=== PATIENT | male | born 1995 | race Caucasian/White ===

== ENCOUNTER 2016-12-22 01:02 | Emergency (ER) | payer OTHER ==
--- NOTE | 2016-12-22 01:44 | ED NURSING NOTES ---
Clinical Report - Nurses [facility] [address] [place] [address] 12/22/2016 1:05 Patient: INEZ QUISPE TRIAGE Triage time 01:14. Acuity: LEVEL 4. Chief Complaint: Sore under right arm. 01:17. Alert. --01:17 Kelechi Durbin R.N. 01:14 12/22/16. BP: 146/73. HR: 114. RR: 16. O2 saturation: 100%. Temp: 98.3 F (oral). Pain level now: 03/28. --01:17 Kelechi Durbin R.N. Weight: 129.2 kg stated. Height/Length: 67 inches Per Patient. BMI: 44.7. Growth Chart Percentile: Weight: 99.8%. Height/Length: 17.3%. --01:16 Kelechi Durbin R.N. Medications None. --01:17 Kelechi Durbin R.N. Allergies No Known Drug Allergy. --01:17 Kelechi Durbin R.N. Medication/allergy information source: the patient. --01:17 Kelechi Durbin R.N. History Arrived by private vehicle. Historian: patient. Accompanied by spouse. Primary physician (None). Reported as located in the right axilla. Onset. (4 days ago). It is described as painful. Treatment NOC ANALYST: Took Tylenol. (Aleve, Neosporin). PAST MEDICAL HX: Immunizations: up-to-date. SOCIAL HX: Current some days light tobacco smoker- less than 1/2 a pack per day. No alcohol use or drug use. No infectious disease exposure. ABUSE ASSESSMENT: No report of abuse. FALL RISK ASSESSMENT: Fall risk assessment completed. No fall risk identified. NUTRITIONAL RISK ASSESSMENT: The nutritional risk assessment revealed no deficiencies. FUNCTIONAL ASSESSMENT: Functional assessment: no impairments noted. LEARNING NEEDS ASSESSMENT: The learning needs assessment revealed no barriers. SKIN INTEGRITY ASSESSMENT: Skin integrity risk assessment completed. No skin integrity risk identified. --01:17 Kelechi Durbin R.N. PROBLEMS: no known problems. ADDITIONAL SURGERIES: no known surgeries. Interventions ID band on patient. To treatment room. --01:17 Kelechi Durbin R.N. PHYSICAL ASSESSMENT 01:18. Ambulatory to room. Patient gowned. GENERAL / NEURO / PSYCH: Alert. Oriented X 4. HEENT: Mucous membranes are pink. RESPIRATORY: Respirations not labored. SKIN: Skin is intact, warm and dry. Single skin lesion with erythema in the right axilla, on the right arm. --01:18 Kelechi Durbin R.N. NURSING PROGRESS NOTES 01:18. Head of bed elevated. Two patient identifiers checked. Call light placed in reach. Bed placed in lowest position. Brakes of bed on. Patient ready for evaluation- chart flagged. --01:18 Kelechi Durbin R.N. 01:46 12/22/2016 Bactrim DS (Sulfamethoxazole-TMP DS) PO 1 tab given. Allergies verified and confirmed 5 rights. --01:51 Kelechi Durbin R.N. 01:46 12/22/2016 Hydrocodone-APAP (Hydrocodone-Acetaminophen) PO 5/325 mg Tablets 1 tab given. Allergies verified, confirmed 5 rights and sedative warning given to the patient. --01:51 Kelechi Durbin R.N. 01:48 12/22/2016 Toradol (Ketorolac Tromethamine) IM 60 mg given. Given in the right ventral gluteus. Allergies verified and confirmed 5 rights. --01:51 Kelechi Durbin R.N. 02:00. The patient is calm and resting quietly. RESPIRATORY: No respiratory distress. SKIN: Skin is warm and dry. Skin color within normal limits. --02:04 Kelechi Durbin R.N. 02:01 12/22/2016 Toradol IM Response: no adverse reaction. --02:04 Kelechi Durbin R.N. DISPOSITION / DISCHARGE Departure time: 02:03. Condition at departure: stable. No learning barriers present. Discharge instructions provided and reviewed with the patient. Reviewed medication(s) side effects, precautions, dosing and course information. Prescription(s) given to the patient. Patient verbalized understanding. Written instructions provided in [place]. The patient was discharged home and accompanied by spouse. He left the Emergency Department ambulatory and via private vehicle. Spouse driving. FALL RISK ASSESSMENT: Fall risk assessment completed. No fall risk identified. --02:03 Kelechi Durbin R.N. Locked/Released at 12/22/2016 2:06 by Kelechi Durbin R.N.
--- NOTE | 2016-12-22 01:44 | ED CLINICAL REPORT ---
Clinical Report - Physicians/Mid Levels [facility] [address] [place] [address] 12/22/2016 1:05 Patient: INEZ QUISPE Time Seen: 01:29. Arrived- By private vehicle. Historian- patient. HISTORY OF PRESENT ILLNESS Chief Complaint: SKIN RASH and TENDER AREA. This started several days ago and is still present. It is described as painful. It has been located on the right arm. No cause has been identified. Similar symptoms previously: None. Recent medical care: Not recently seen/assessed. REVIEW OF SYSTEMS No fever, chills, sore throat, cough or difficulty breathing. No hoarseness, lump in throat, enlarged lymph nodes, headache or eye irritation. No chest pain, abdominal pain, nausea, diarrhea or difficulty with urination. No joint pain or vomiting. All systems otherwise negative, except as recorded above. PAST HISTORY Problems: no known problems. Additional Surgeries: no known surgeries. Medications: None. Allergies: No Known Drug Allergy. SOCIAL HISTORY Smoker- current status unknown. No alcohol use or drug use. ADDITIONAL NOTES The nursing notes have been reviewed. PHYSICAL EXAM Vital Signs: 12/22/2016 01:14 BP: 146/73. HR: 114. RR: 16. O2 saturation: 100%. Temp: 98.3 F. Pain level now: 6/10. Have been reviewed. Appearance: Alert. Oriented X3. No acute distress. Eyes: Pupils equal, round and reactive to light. Conjunctivae and eyelids normal. ENT: Nose normal. Neck: Neck supple. CVS: Pulses normal. Strong peripheral pulses. Respiratory: No respiratory distress. Skin: Skin warm and dry. Normal skin color. Normal skin turgor. Medium area of cellulitis with tenderness, erythema and warmth (No induration, no fluctuance). Extremities: (Normal, other than R arm cellulitis, as above.). Neuro: (Grossly intact.). LABS, X-RAYS, AND EKG Pulse Oximetry: 12/22/2016 01:14 O2 saturation: 100%. (FIO2 - room air). Interpretation: normal. PROGRESS AND PROCEDURES Course of Care: Pt was given doses of Bactrim and Toradol. I d/w pt and his that there is no abscess cavity to drain at this time. The infected tissue is soft, and without a focal point of induration or fluctuance. Patient counseled in person regarding the patient's stable condition, diagnosis and need for follow-up. Concerns were addressed. Old medical records reviewed. Disposition: Discharged. Condition: stable. CLINICAL IMPRESSION Cellulitis of the right upper arm. INSTRUCTIONS Warnings: SEDATIVE MEDICATION: You were given sedative medication during your visit. Do not drive or operate dangerous machinery for 6 hours. GENERAL WARNINGS: Return or contact your physician immediately if your condition worsens or changes unexpectedly, if not improving as expected, or if other problems arise. Prescription Medications: Hydrocodone/APAP 5mg / 325mg: take 1-2 orally every 6 hours as needed for pain. Dispense fifteen (15). No refill. Bactrim DS 800 mg / 160 mg: take 1 tablet orally every 12 hours for 10 days. No refill. Substitution is permissible. Follow-up: Follow up with your doctor in five days if not better. Understanding of the discharge instructions verbalized by patient. (Electronically signed by Chandni Caruso MD 12/22/2016 1:58)
--- NOTE | 2016-12-22 01:44 | ED ORDER SUMMARY ---
..... Patient: INEZ QUISPE OrderSheet [facility] VisitID: [id number] [place] [address] 21y, M Registration Date/Time: 12/22/2016 ORDER SHEET Weight: 129.2 kg (stated) Allergies: No Known Drug Allergy GENERAL ORDERS: MEDICATION ORDERS: Bactrim DS PO (Tablet 800-160 mg) 1 tab (NOW) (01:39 12/22/2016 Noelle BUSTOS) (Ack 1:42 JQuivey R.N.) (1:50 JQuivey R.N.) Hydrocodone-APAP PO 5/325 mg (NOW, HIGH ALERT MEDICATION) (01:40 12/22/2016 Noelle BUSTOS) (Ack 1:42 JQuivey R.N.) (1:51 JQuivey R.N.) Toradol IM 60 mg (NOW) (01:41 12/22/2016 Noelle BUSTOS) (Ack 1:42 JQuivey R.N.) (1:51 JQuivey R.N.) IV FLUIDS: ORDER SHEET NOTES: [Electronically signed by Chandni Caruso MD (01:58 12/22/2016)] [Electronically signed by Kelechi Durbin R.N. (02:06 12/22/2016)] [Electronically locked/signed by Kelechi Durbin R.N. (02:06 12/22/2016)]
--- NOTE | 2016-12-22 01:44 | ED ORDER SUMMARY ---
..... Patient: INEZ QUISPE OrderSheet [facility] VisitID: [id number] [place] [address] 21y, M Registration Date/Time: 12/22/2016 ORDER SHEET Weight: 129.2 kg (stated) Allergies: No Known Drug Allergy GENERAL ORDERS: MEDICATION ORDERS: Bactrim DS PO (Tablet 800-160 mg) 1 tab (NOW) (01:39 12/22/2016 Noelle BUSTOS) (Ack 1:42 JQuivey R.N.) (1:50 JQuivey R.N.) Hydrocodone-APAP PO 5/325 mg (NOW, HIGH ALERT MEDICATION) (01:40 12/22/2016 Noelle BUSTOS) (Ack 1:42 JQuivey R.N.) (1:51 JQuivey R.N.) Toradol IM 60 mg (NOW) (01:41 12/22/2016 Noelle BUSTOS) (Ack 1:42 JQuivey R.N.) (1:51 JQuivey R.N.) IV FLUIDS: ORDER SHEET NOTES: [Electronically signed by Chandni Caruso MD (01:58 12/22/2016)] [Electronically signed by Kelechi Durbin R.N. (02:06 12/22/2016)] [Electronically locked/signed by Kelechi Durbin R.N. (02:06 12/22/2016)]
--- NOTE | 2016-12-22 01:44 | ED NURSING NOTES ---
Clinical Report - Nurses [facility] [address] [place] [address] 12/22/2016 1:05 Patient: INEZ QUISPE TRIAGE Triage time 01:14. Acuity: LEVEL 4. Chief Complaint: Sore under right arm. 01:17. Alert. --01:17 Kelechi Durbin R.N. 01:14 12/22/16. BP: 146/73. HR: 114. RR: 16. O2 saturation: 100%. Temp: 98.3 F (oral). Pain level now: 03/28. --01:17 Kelechi Durbin R.N. Weight: 129.2 kg stated. Height/Length: 67 inches Per Patient. BMI: 44.7. Growth Chart Percentile: Weight: 99.8%. Height/Length: 17.3%. --01:16 Kelechi Dubrin R.N. Medications None. --01:17 Kelechi Durbin R.N. Allergies No Known Drug Allergy. --01:17 Kelechi Durbin R.N. Medication/allergy information source: the patient. --01:17 Kelechi Durbin R.N. History Arrived by private vehicle. Historian: patient. Accompanied by spouse. Primary physician (None). Reported as located in the right axilla. Onset. (4 days ago). It is described as painful. Treatment RN L AND D: Took Tylenol. (Aleve, Neosporin). PAST MEDICAL HX: Immunizations: up-to-date. SOCIAL HX: Current some days light tobacco smoker- less than 1/2 a pack per day. No alcohol use or drug use. No infectious disease exposure. ABUSE ASSESSMENT: No report of abuse. FALL RISK ASSESSMENT: Fall risk assessment completed. No fall risk identified. NUTRITIONAL RISK ASSESSMENT: The nutritional risk assessment revealed no deficiencies. FUNCTIONAL ASSESSMENT: Functional assessment: no impairments noted. LEARNING NEEDS ASSESSMENT: The learning needs assessment revealed no barriers. SKIN INTEGRITY ASSESSMENT: Skin integrity risk assessment completed. No skin integrity risk identified. --01:17 Kelechi Durbin R.N. PROBLEMS: no known problems. ADDITIONAL SURGERIES: no known surgeries. Interventions ID band on patient. To treatment room. --01:17 Kelechi Durbin R.N. PHYSICAL ASSESSMENT 01:18. Ambulatory to room. Patient gowned. GENERAL / NEURO / PSYCH: Alert. Oriented X 4. HEENT: Mucous membranes are pink. RESPIRATORY: Respirations not labored. SKIN: Skin is intact, warm and dry. Single skin lesion with erythema in the right axilla, on the right arm. --01:18 eKlechi Durbin R.N. NURSING PROGRESS NOTES 01:18. Head of bed elevated. Two patient identifiers checked. Call light placed in reach. Bed placed in lowest position. Brakes of bed on. Patient ready for evaluation- chart flagged. --01:18 Kelechi Durbin R.N. 01:46 12/22/2016 Bactrim DS (Sulfamethoxazole-TMP DS) PO 1 tab given. Allergies verified and confirmed 5 rights. --01:51 Kelechi Durbin R.N. 01:46 12/22/2016 Hydrocodone-APAP (Hydrocodone-Acetaminophen) PO 5/325 mg Tablets 1 tab given. Allergies verified, confirmed 5 rights and sedative warning given to the patient. --01:51 Kelechi Durbin R.N. 01:48 12/22/2016 Toradol (Ketorolac Tromethamine) IM 60 mg given. Given in the right ventral gluteus. Allergies verified and confirmed 5 rights. --01:51 Kelechi Durbin R.N. 02:00. The patient is calm and resting quietly. RESPIRATORY: No respiratory distress. SKIN: Skin is warm and dry. Skin color within normal limits. --02:04 Kelechi Durbin R.N. 02:01 12/22/2016 Toradol IM Response: no adverse reaction. --02:04 Kelechi Durbin R.N. DISPOSITION / DISCHARGE Departure time: 02:03. Condition at departure: stable. No learning barriers present. Discharge instructions provided and reviewed with the patient. Reviewed medication(s) side effects, precautions, dosing and course information. Prescription(s) given to the patient. Patient verbalized understanding. Written instructions provided in [place]. The patient was discharged home and accompanied by spouse. He left the Emergency Department ambulatory and via private vehicle. Spouse driving. FALL RISK ASSESSMENT: Fall risk assessment completed. No fall risk identified. --02:03 Kelechi Durbin R.N. Locked/Released at 12/22/2016 2:06 by Kelechi Durbin R.N.
--- NOTE | 2016-12-22 02:06 | ED DISCHARGE INSTRUCTIONS ---
Patient: INEZ QUISPE General Instructions [facility] VisitID: [id number] [place] [address] 21y, M Registration Date/Time: 12/22/2016 Cellulitis of the right upper arm. INSTRUCTIONS Warnings: SEDATIVE MEDICATION: You were given sedative medication during your visit. Do not drive or operate dangerous machinery for 6 hours. GENERAL WARNINGS: Return or contact your physician immediately if your condition worsens or changes unexpectedly, if not improving as expected, or if other problems arise. Prescription Medications: Hydrocodone/APAP 5mg / 325mg: take 1-2 orally every 6 hours as needed for pain. Dispense fifteen (15). No refill. Bactrim DS 800 mg / 160 mg: take 1 tablet orally every 12 hours for 10 days. No refill. Substitution is permissible. Follow-up: Follow up with your doctor in five days if not better. Understanding of the discharge instructions verbalized by patient. ADDITIONAL INFORMATION Cellulitis You have an infection of the skin known as cellulitis. This usually starts with a scrape, cut, insect bite, blister or other opening in the skin which becomes infected. This is a serious condition. It must be watched closely to be sure the infection is not spreading. With antibiotic treatment, the size of the red area will gradually shrink in size until the skin returns to normal. This will take 7-10 days. The red area should never increase in size once the antibiotic medicine has been started. Occasionally, an infection will be resistant to one antibiotic and another one will have to be used. Home Care: 1) Limit the use of the affected part, since excess movement can cause the infection to spread. 2) If the infection is on your leg, walk as little as possible during the first few days of the treatment. Keep your leg elevated while sitting. This will reduce swelling. 3) Take all of the antibiotic medicine exactly as directed until it is gone. Be careful not to miss any doses, especially during the first seven days. Follow Up with your doctor or this facility as directed. Check the infected area daily for the warning signs listed below. Get Prompt Medical Attention if any of the following occur: -- Spreading area of redness -- Increasing swelling or pain -- Appearance of pus or drainage -- Fever over 100.4 F (38.0 C) oral, or over 101.4 F (38.6 C) rectal, after two days on antibiotics You have been given the following additional information: Cellulitis (Electronically signed by Chandni Caruso MD 12/22/2016 1:58)
--- NOTE | 2016-12-22 02:06 | ED MAR SUMMARY ---
..... Medication Administration Record [facility] [address] [place] [address] Patient: INEZ QUISPE Visit ID: [id number] 21y, M Weight: 129.2 kg Height/Length: 67 in BMI: 44.7 ALLERGIES: No Known Drug Allergy Given 01:46 12/22/2016 Kelechi Durbin, R.N. Medication Administered: BACTRIM DS [PO] (SULFAMETHOXAZOLE-TMP DS), Dose: 1 tab PO. Medication Ordered: Bactrim DS PO (Tablet 800-160 mg) 1 tab (NOW). Given 01:46 12/22/2016 Kelechi Durbin, R.N. Medication Administered: HYDROCODONE-APAP [PO] (HYDROCODONE-ACETAMINOPHEN), Dose: 1 tab 5/325 mg Tablets PO. Medication Ordered: Hydrocodone-APAP PO 5/325 mg (NOW, HIGH ALERT MEDICATION). Given 01:48 12/22/2016 Kelechi Durbin, R.N. Medication Administered: TORADOL [IM] (KETOROLAC TROMETHAMINE), Dose: 60 mg IM. Medication Ordered: Toradol IM 60 mg (NOW).
--- NOTE | 2016-12-22 02:06 | ED MAR SUMMARY ---
..... Medication Administration Record [facility] [address] [place] [address] Patient: INEZ QUISPE Visit ID: [id number] 21y, M Weight: 129.2 kg Height/Length: 67 in BMI: 44.7 ALLERGIES: No Known Drug Allergy Given 01:46 12/22/2016 Kelechi Durbin, R.N. Medication Administered: BACTRIM DS [PO] (SULFAMETHOXAZOLE-TMP DS), Dose: 1 tab PO. Medication Ordered: Bactrim DS PO (Tablet 800-160 mg) 1 tab (NOW). Given 01:46 12/22/2016 Kelechi Durbin, R.N. Medication Administered: HYDROCODONE-APAP [PO] (HYDROCODONE-ACETAMINOPHEN), Dose: 1 tab 5/325 mg Tablets PO. Medication Ordered: Hydrocodone-APAP PO 5/325 mg (NOW, HIGH ALERT MEDICATION). Given 01:48 12/22/2016 Kelechi Durbin, R.N. Medication Administered: TORADOL [IM] (KETOROLAC TROMETHAMINE), Dose: 60 mg IM. Medication Ordered: Toradol IM 60 mg (NOW).
--- NOTE | 2016-12-22 02:07 | ED MED RECONCILIATION SUMMARY ---
Patient: INEZ QUISPE Medication Reconciliation Report [facility] VisitID: [id number] [place] [address] 21y, M Registration Date/Time: 12/22/2016 Weight: 129.2 kg Height/Length: 67 in. BMI: 44.7 ALLERGIES: No Known Drug Allergy The patient's Home Medications are listed below: NONE. The source(s) of the original Home Medication information: patient The following Medications were given to the patient in the Emergency Department: Bactrim DS [PO] PO 1 tab, administered: 12/22/2016 1:46:00 AM Hydrocodone-APAP [PO] PO 1 tab, administered: 12/22/2016 1:46:00 AM Toradol [IM] IM 60 mg, administered: 12/22/2016 1:48:00 AM The following Medications were prescribed to the patient: Hydrocodone/APAP 5mg / 325mg: take 1-2 orally every 6 hours as needed for pain. Dispense fifteen (15). No refill. -- Chandni Caruso MD Bactrim DS 800 mg / 160 mg: take 1 tablet orally every 12 hours for 10 days. No refill. Substitution is permissible. -- Chandni Caruso MD
--- NOTE | 2016-12-22 02:07 | ED MED RECONCILIATION SUMMARY ---
Patient: INEZ QUISPE Medication Reconciliation Report [facility] VisitID: [id number] [place] [address] 21y, M Registration Date/Time: 12/22/2016 Weight: 129.2 kg Height/Length: 67 in. BMI: 44.7 ALLERGIES: No Known Drug Allergy The patient's Home Medications are listed below: NONE. The source(s) of the original Home Medication information: patient The following Medications were given to the patient in the Emergency Department: Bactrim DS [PO] PO 1 tab, administered: 12/22/2016 1:46:00 AM Hydrocodone-APAP [PO] PO 1 tab, administered: 12/22/2016 1:46:00 AM Toradol [IM] IM 60 mg, administered: 12/22/2016 1:48:00 AM The following Medications were prescribed to the patient: Hydrocodone/APAP 5mg / 325mg: take 1-2 orally every 6 hours as needed for pain. Dispense fifteen (15). No refill. -- Chandni Caruso MD Bactrim DS 800 mg / 160 mg: take 1 tablet orally every 12 hours for 10 days. No refill. Substitution is permissible. -- Chandni Caruso MD
== END 2016-12-22 02:03 | disposition home or self-care (01) ==
LOC: ED SRH 01:02
DX: L03.113 Cellulitis of right upper limb (principal)

== ENCOUNTER 2016-12-25 02:23 | Inpatient (IN) | payer OTHER ==
[~2016-12-25] VITALS: Ht 172.7 cm; Wt 110.0 kg
--- NOTE | 2016-12-25 04:05 | ED NURSING NOTES ---
Clinical Report - Nurses [facility] [address] [place] [address] 12/25/2016 2:24 Patient: INEZ QUISPE TRIAGE Triage time 02:36. Acuity: LEVEL 4. Chief Complaint: SKIN RASH. Alert. --02:42 Sarah Baumann R.N. 02:36 12/25/16. BP: 124/78. HR: 124. RR: 16. O2 saturation: 98%. Temp: 103 F (oral). Hawthorne-Linn pain scale: 6/10. --02:42 Sarah Baumann R.N. Weight: 108.8 kg stated. Height/Length: 68 inches Per Patient. BMI: 36.5. Growth Chart Percentile: Weight: 98.6%. Height/Length: 28.1%. --02:39 Sarah Baumann R.N. Allergies No Known Drug Allergy. --04:55 Arik Colon R.N. History Arrived by private vehicle. Historian: patient. Primary physician ([facility]). Reported as located in the right axilla. Onset. (about 1 1/2 week ago (was seen here 2 days ago, started on Abx) not getting better.). Treatment EDUCATION INTERN: Took ibuprofen. (last dose one hr EDUCATION INTERN, Tylenol last dose 2hrs EDUCATION INTERN). PAST MEDICAL HX: Immunizations: up-to-date. SOCIAL HX: Light tobacco smoker. No alcohol use or drug use. NUTRITIONAL RISK ASSESSMENT: The nutritional risk assessment revealed no deficiencies. FUNCTIONAL ASSESSMENT: Functional assessment: no impairments noted. --02:42 Sarah Baumann R.N. Interventions ID band on patient. To treatment room. --02:42 Sarah Baumann R.N. PHYSICAL ASSESSMENT Ambulatory to room. Patient gowned. GENERAL / NEURO / PSYCH: Alert. The patient does not appear to be in acute distress. Oriented X 4. HEENT: Mucous membranes are pink. RESPIRATORY: Respirations not labored. CVS: Capillary refill less than 2 seconds. SKIN: Skin is warm and dry. Skin lesion present in the right axilla. --02:42 Sarah Baumann R.N. ( pt states being seen in this ER 3 days ago for same complaint. Patient has a large red swollen abscess under right arm in the axilla area. Patient complains of limited ROM due to pain.). --03:43 Arik Colon R.N. GENERAL / NEURO / PSYCH: Alert. Oriented X 4. HEENT: Mucous membranes are pink. RESPIRATORY: Respirations not labored. CVS: Cardiac rhythm: sinus tachycardia. Capillary refill less than 2 seconds. SKIN: Skin is warm and dry. Swelling present in the right axilla. --03:44 Arik Colon R.N. NURSING PROGRESS NOTES Head of bed elevated. Two patient identifiers checked. Call light placed in reach. Side rails up x 2. Bed placed in lowest position. Brakes of bed on. --02:42 Sarah Baumann R.N. 03:10 12/25/2016 Site #1 started via IV in the left antecubital space with an 20g angiocath; one attempt. Blood drawn: rainbow set and cultures x1. Labeled in the presence of the patient and sent to the lab. Saline lock flushed. --03:36 Arik Colon R.N. <<STRICKEN ENTRY-- 03:20 12/25/2016 Dilaudid (HYDROmorphone HCl PF) IVP 0.5 mg given over 2 minute(s) via site #1. --03:36 Arik Colon R.N. --END STRIKE>> Change to Details. --03:37 Arik Colon R.N. 03:20 12/25/2016 Dilaudid (HYDROmorphone HCl PF) IVP 0.5 mg given over 2 minute(s) via site #1. Allergies verified, confirmed 5 rights and sedative warning given to the patient and patient's family. IV patency established. IV site checked: no pain, redness, or swelling. IV flushed thoroughly pre- and post-medication administration. IVP given by RN. --03:37 Arik Colon R.N. 03:22 12/25/2016 Zofran (Ondansetron HCl) IVP 4 mg given over 1 minute(s) via site #1. Allergies verified and confirmed 5 rights. IV patency established. IV site checked: no pain, redness, or swelling. IV flushed thoroughly pre- and post-medication administration. IVP given by RN. --03:37 Arik Colon R.N. 03:25 12/25/2016 Started bag #1 500 mL IV Fluids IV NS (Saline); at 999 mL/hr over 30 minute(s) via site #1 --03:38 Arik Colon R.N. 03:28 12/25/2016 Dilaudid (HYDROmorphone HCl PF) IVP 0.5 mg given over 2 minute(s) via site #1. Allergies verified, confirmed 5 rights and sedative warning given to the patient and patient's family. IV patency established. IV site checked: no pain, redness, or swelling. IV flushed thoroughly pre- and post-medication administration. IVP given by RN. --03:38 Arik Colon R.N. I & D: Incision and Drainage of abscess performed by ED physician. Assisted by one tech. Preparation: Incision and Drainage tray set up with lidocaine. Procedure: skin cleansed with Betadine; a large amount of pus was drained. Sample obtained for cultures. A dressing was applied. Post-procedure: he was stable, no complications and bleeding controlled. Total time of assist / procedure: 15 minutes. ( Dr. Mcgrath at bedside performing I&D.). --03:42 Arik Colon R.N. 04:15 12/25/2016 Started 2 gm of Vancomycin IVPB in bag #1 500 mL; at 150 mL/hr via site #1 via IV pump. Allergies verified and confirmed 5 rights. IV patency established. IV site checked: no pain, redness, or swelling. IV flushed thoroughly pre- and post-medication administration. --04:15 Arik Colon R.N. Patient gowned. The patient is calm and resting quietly. Overall patient status is improved- he states feels better. Two patient identifiers checked. Call light placed in reach. Side rails up x 1. Bed placed in lowest position. Brakes of bed on. ( supervisor shuttle preparation with patient, performing hospital admission procedures.). --04:26 Arik Colon R.N. 04:24 12/25/16. BP: 124/67. HR: 130 (regular). RR: 22 (regular). O2 saturation: 95% on room air. Pain level now: 0/10. --04:26 Arik Colon R.N. Care transferred and report given (to Niels Lemus RN). --04:37 Arik Colon R.N. DISPOSITION / DISCHARGE Report was given to a nurse via a phone call. Report included patient's care, treatment, medications, reviewed medication reconcilliation, and condition (including any recent changes or anticipated changes). All questions were answered. Report was acknowledged. --04:38 Arik Colon R.N. 04:39 12/25/16. BP: 141/72. HR: 129. RR: 18. O2 saturation: 94%. Pain level now: 0/10. --04:40 Arik Colon R.N. 04:42 12/25/2016 IV Fluids IV NS Discontinued: bag #1 completed. Total amount infused: 1000 mL. IV patency established. IV site checked: no pain, redness, or swelling. IV flushed thoroughly. --04:42 Arik Colon R.N. 04:43 12/25/2016 Vancomycin IVPB Continued: at the rate of 150 mL/hr. 470 mL remaining bag #1. IV patency established. IV site checked: no pain, redness, or swelling. IV flushed thoroughly. --04:43 Arik Colon R.N. 04:44 12/25/2016 Site #[address] upon admission; patent, no pain and no signs of infection or infiltration. Good blood return present. Flushed; flushes easily. --04:44 Arik Colon R.N. Transported via stretcher by transport team with IV. Patient's personal items include: shirt, pants, socks and shoes, clothing and ipad (without smelter charger.); items were transported with the patient. --04:47 Arik Colon R.N. Departure time: 0453. --04:54 Arik Colon R.N. Locked/Released at 12/25/2016 4:56 by Arik Colon R.N.
--- NOTE | 2016-12-25 04:05 | ED ORDER SUMMARY ---
..... Patient: INEZ QUISPE OrderSheet [facility] VisitID: [id number] [place] [address] 21y, M Registration Date/Time: 12/25/2016 ORDER SHEET Weight: 108.8 kg (stated) Allergies: No Known Drug Allergy GENERAL ORDERS: Blood Culture (Yes) (unsure) Urgent (02:47 12/25/2016 RCollier R.N. verbal order read back to Vineet BUSTOS) (Ack 2:48 CHategekimana) (3:33 DDavis R.N.) CBC w Diff Urgent (02:47 12/25/2016 RCollier R.N. verbal order read back to Vineet BUSTOS) (Ack 2:48 CHategekimana) (3:33 DDavis R.N.) CMP Urgent (02:47 12/25/2016 RCollier R.N. verbal order read back to Vineet BUSTOS) (Ack 2:48 CHategekimana) (3:33 DDavis R.N.) Lactic Acid for Sepsis Protocol Urgent (02:47 12/25/2016 RCollier R.N. verbal order read back to Vineet BUSTOS) (Ack 2:48 CHategekimana) (3:33 DDavis R.N.) Culture, Wound Deep (Arm) (R axilla) Urgent (03:45 12/25/2016 Vineet BUSTOS) (Ack 3:49 DDavis R.N.) (3:49 DDavis R.N.) (Ack 3:50 CHategekimana) MEDICATION ORDERS: IV FLUIDS: IV Saline Lock (02:47 12/25/2016 RCollier R.N. verbal order read back to Vineet BUSTOS) (Ack 2:47 RCollier R.N.) (3:39 DDavis R.N.) Dilaudid IV 0.5 mg (HIGH ALERT MEDICATION, NOW) (03:05 12/25/2016 Vineet BUSTOS) (Ack 3:17 RCollier R.N.) (3:36 DDavis R.N.) Zofran IV 4 mg (NOW) (03:05 12/25/2016 Vineet BUSTOS) (Ack 3:17 RCollier R.N.) (3:37 DDavis R.N.) IV NS : initial bolus 500 mL (1000 mL/hr), then 125 mL/hr for 4h (NOW); Urgent (03:05 12/25/2016 Vineet BUSTOS) (Ack 3:17 RCollier R.N.) (3:38 DDavis R.N.) Dilaudid IV 0.5 mg (NOW) (03:34 12/25/2016 DDavis R.N. verbal order read back to Vineet BUSTOS) (3:38 DDavis R.N.) Vancomycin IV 2 gm/500 mL (NOW) (03:57 12/25/2016 Vineet BUSTOS) (Ack 3:58 RCollier R.N.) (4:15 DDavis R.N.) ORDER SHEET NOTES: [Electronically signed by Arik Colon R.N. (04:56 12/25/2016)] [Electronically signed by Rod Mcgrath MD (03:11 12/26/2016)] [Electronically locked/signed by Arik Colon R.N. (04:56 12/25/2016)]
--- NOTE | 2016-12-25 04:05 | ED ORDER SUMMARY ---
..... Patient: INEZ QUISPE OrderSheet [facility] VisitID: [id number] [place] [address] 21y, M Registration Date/Time: 12/25/2016 ORDER SHEET Weight: 108.8 kg (stated) Allergies: No Known Drug Allergy GENERAL ORDERS: Blood Culture (Yes) (unsure) Urgent (02:47 12/25/2016 RCollier R.N. verbal order read back to Vineet BUSTOS) (Ack 2:48 CHategekimana) (3:33 DDavis R.N.) CBC w Diff Urgent (02:47 12/25/2016 RCollier R.N. verbal order read back to Vineet BUSTOS) (Ack 2:48 CHategekimana) (3:33 DDavis R.N.) CMP Urgent (02:47 12/25/2016 RCollier R.N. verbal order read back to Vineet BUSTOS) (Ack 2:48 CHategekimana) (3:33 DDavis R.N.) Lactic Acid for Sepsis Protocol Urgent (02:47 12/25/2016 RCollier R.N. verbal order read back to Vineet BUSTOS) (Ack 2:48 CHategekimana) (3:33 DDavis R.N.) Culture, Wound Deep (Arm) (R axilla) Urgent (03:45 12/25/2016 Vineet BUSTOS) (Ack 3:49 DDavis R.N.) (3:49 DDavis R.N.) (Ack 3:50 CHategekimana) MEDICATION ORDERS: IV FLUIDS: IV Saline Lock (02:47 12/25/2016 RCollier R.N. verbal order read back to Vineet BUSTOS) (Ack 2:47 RCollier R.N.) (3:39 DDavis R.N.) Dilaudid IV 0.5 mg (HIGH ALERT MEDICATION, NOW) (03:05 12/25/2016 Vineet BUSTOS) (Ack 3:17 RCollier R.N.) (3:36 DDavis R.N.) Zofran IV 4 mg (NOW) (03:05 12/25/2016 Vineet BUSTOS) (Ack 3:17 RCollier R.N.) (3:37 DDavis R.N.) IV NS : initial bolus 500 mL (1000 mL/hr), then 125 mL/hr for 4h (NOW); Urgent (03:05 12/25/2016 Vineet BUSTOS) (Ack 3:17 RCollier R.N.) (3:38 DDavis R.N.) Dilaudid IV 0.5 mg (NOW) (03:34 12/25/2016 DDavis R.N. verbal order read back to Vineet BUSTOS) (3:38 DDavis R.N.) Vancomycin IV 2 gm/500 mL (NOW) (03:57 12/25/2016 Vineet BUSTOS) (Ack 3:58 RCollier R.N.) (4:15 DDavis R.N.) ORDER SHEET NOTES: [Electronically signed by Arik Colon R.N. (04:56 12/25/2016)] [Electronically signed by Rod Mcgrath MD (03:11 12/26/2016)] [Electronically locked/signed by Arik Colon R.N. (04:56 12/25/2016)]
--- NOTE | 2016-12-25 04:05 | ED CLINICAL REPORT ---
Clinical Report - Physicians/Mid Levels [facility] [address] [place] [address] 12/25/2016 2:24 Patient: INEZ QUISPE Time Seen: 02:49. Arrived- By private vehicle. Historian- patient. HISTORY OF PRESENT ILLNESS Chief Complaint: TENDER AREA. This started about one and a half weeks ago and is still present and now worse. It was gradual in onset and has been constant. It is described as painful. It has been located in the right axilla. Similar symptoms previously: Recent medical care: The patient was seen recently at this facility. Seen for similar symptoms. Evaluation/treatment: antibiotic prescribed and see medication list. Diagnosis: cellulitis. REVIEW OF SYSTEMS The patient has had fever and chills and experienced sweats. No calf pain, chest pain, cough, difficulty breathing or pedal edema. No palpitations, abdominal pain, constipation, diarrhea or nausea. No vomiting or urinary problems. All systems otherwise negative, except as recorded above. PAST HISTORY Problems: Cellulitis. SOCIAL HISTORY Light tobacco smoker. No alcohol use or drug use. FAMILY HISTORY Denies family medical history. ADDITIONAL NOTES The nursing notes have been reviewed. PHYSICAL EXAM Vital Signs: 12/25/2016 02:36 BP: 124/78. HR: 124. RR: 16. O2 saturation: 98%. Temp: 103 F. Hawthorne-Linn pain scale: 6/10. Have been reviewed. Appearance: Alert. Eyes: Pupils equal, round and reactive to light. ENT: Pharynx normal. Neck: Neck supple. CVS: Normal heart rate and rhythm. Heart sounds normal. Respiratory: No respiratory distress. Breath sounds normal. Abdomen: Nontender. No organomegaly. Skin: Skin warm and dry. Medium abscess with fluctuance and cellulitis to right axilla. Extremities: No calf tenderness. LABS, X-RAYS, AND EKG Laboratory Tests: CBC w Diff: (LIZZY: 12/25/2016 03:05) ( MsgRcvd 12/25/2016 03:28) Final results Test Result Flag Units (Reference) WHITE BLOOD COUNT 17.0 H K/uL (4.5-11.5) RED BLOOD COUNT 5.02 M/uL (4.50-5.90) HEMOGLOBIN 14.3 gm/dL (13.5-17.5) HEMATOCRIT 42.9 % (41.0-53.0) MEAN CELL VOLUME 86 fL (80-100) MEAN CORPUSCULAR HGB 29 pg (26-34) MEAN CORPUSCULAR HGB CONC 33 g/dL (31-37) RED CELL DISTRIBUTION WIDTH 12.8 % (11.6-14.8) PLATELET COUNT 283 K/uL (150-400) NEUTROPHIL % 69.0 % (50-75) LYMPH % 21.3 L % (25-40) MONO % 7.5 % (3-14) EOSINOPHIL % 1.9 % (0-4) BASOPHIL % 0.3 % (0-2) CMP: (LIZZY: 12/25/2016 03:05) ( MsgRcvd 12/25/2016 03:50) Final results Test Result Flag Units (Reference) GLUCOSE 105 mg/dL (70-110) BUN 13 mg/dL (7-18) CREATININE 1.2 mg/dL (0.6-1.3) Estimated GFR >60 mL/min Estimated GFR- >60 mL/min Note: Persistent reduction over 3 months in eGFR<60 mL/min/1.73 m2 defines CKD. Patients with eGFR values>=60 mL/min/1.73 m2 may also have CKD if evidence ofpersistent proteinuria. Additional information may be foundat www.kidney.org. SODIUM 140 mmol/L (136-145) POTASSIUM 3.9 mmol/L (3.5-5.1) CHLORIDE 102 mmol/L (98-107) CARBON DIOXIDE 28 mmol/L (21-32) CALCIUM 8.9 mg/dL (8.5-10.1) TOTAL PROTEIN 8.4 H g/dL (6.4-8.2) ALBUMIN 3.9 g/dL (3.3-5.0) BILIRUBIN, TOTAL 0.5 mg/dL (0.0-1.0) ALKALINE PHOSPHATASE 111 U/L (46-116) AST (SGOT) 23 U/L (15-37) ALT (SGPT) 54 U/L (12-78) LACTIC ACID SEPSIS PROTOCOL 0.9 mmol/L (0.4-2.0) . PROGRESS AND PROCEDURES Incision & Drainage of Abscess: Time-out completed immediately before the procedure. The abscess is located in the right axilla. The risks of the procedure, benefits and alternatives were explained. Consent was obtained. IV established. Placed on pulse oximeter and front desk monitor. Parenteral Dilaudid administered. Local anesthesia provided using 2% lidocaine no epi. Skin cleansed with Betadine. The abscess was incised with a #11 surgical blade. A large amount of pus was drained. Cavity was irrigated with saline and packed with gauze. Sample obtained for cultures and gram stain. A dressing was applied. Course of Care: Patient is stable. Discussed case with hospitalist, (Fritz). Reviewed test results and need for additional work-up. Agreed upon treatment plan, need for patient follow-up and decision to place in observation. Health care provider will see patient in hospital. Patient/family counseled. Old medical records ordered. [facility] Disposition: Admitted. Observation. CLINICAL IMPRESSION Fever. Cellulitis. Single deep abscess with incision and drainage. Leukocytosis. (Electronically signed by Rod Mcgrath MD 12/26/2016 3:11)
--- NOTE | 2016-12-25 04:05 | ED CLINICAL REPORT ---
Clinical Report - Physicians/Mid Levels [facility] [address] [place] [address] 12/25/2016 2:24 Patient: INEZ QUISPE Time Seen: 02:49. Arrived- By private vehicle. Historian- patient. HISTORY OF PRESENT ILLNESS Chief Complaint: TENDER AREA. This started about one and a half weeks ago and is still present and now worse. It was gradual in onset and has been constant. It is described as painful. It has been located in the right axilla. Similar symptoms previously: Recent medical care: The patient was seen recently at this facility. Seen for similar symptoms. Evaluation/treatment: antibiotic prescribed and see medication list. Diagnosis: cellulitis. REVIEW OF SYSTEMS The patient has had fever and chills and experienced sweats. No calf pain, chest pain, cough, difficulty breathing or pedal edema. No palpitations, abdominal pain, constipation, diarrhea or nausea. No vomiting or urinary problems. All systems otherwise negative, except as recorded above. PAST HISTORY Problems: Cellulitis. SOCIAL HISTORY Light tobacco smoker. No alcohol use or drug use. FAMILY HISTORY Denies family medical history. ADDITIONAL NOTES The nursing notes have been reviewed. PHYSICAL EXAM Vital Signs: 12/25/2016 02:36 BP: 124/78. HR: 124. RR: 16. O2 saturation: 98%. Temp: 103 F. Hawthorne-Linn pain scale: 6/10. Have been reviewed. Appearance: Alert. Eyes: Pupils equal, round and reactive to light. ENT: Pharynx normal. Neck: Neck supple. CVS: Normal heart rate and rhythm. Heart sounds normal. Respiratory: No respiratory distress. Breath sounds normal. Abdomen: Nontender. No organomegaly. Skin: Skin warm and dry. Medium abscess with fluctuance and cellulitis to right axilla. Extremities: No calf tenderness. LABS, X-RAYS, AND EKG Laboratory Tests: CBC w Diff: (LIZZY: 12/25/2016 03:05) ( MsgRcvd 12/25/2016 03:28) Final results Test Result Flag Units (Reference) WHITE BLOOD COUNT 17.0 H K/uL (4.5-11.5) RED BLOOD COUNT 5.02 M/uL (4.50-5.90) HEMOGLOBIN 14.3 gm/dL (13.5-17.5) HEMATOCRIT 42.9 % (41.0-53.0) MEAN CELL VOLUME 86 fL (80-100) MEAN CORPUSCULAR HGB 29 pg (26-34) MEAN CORPUSCULAR HGB CONC 33 g/dL (31-37) RED CELL DISTRIBUTION WIDTH 12.8 % (11.6-14.8) PLATELET COUNT 283 K/uL (150-400) NEUTROPHIL % 69.0 % (50-75) LYMPH % 21.3 L % (25-40) MONO % 7.5 % (3-14) EOSINOPHIL % 1.9 % (0-4) BASOPHIL % 0.3 % (0-2) CMP: (LIZZY: 12/25/2016 03:05) ( MsgRcvd 12/25/2016 03:50) Final results Test Result Flag Units (Reference) GLUCOSE 105 mg/dL (70-110) BUN 13 mg/dL (7-18) CREATININE 1.2 mg/dL (0.6-1.3) Estimated GFR >60 mL/min Estimated GFR- >60 mL/min Note: Persistent reduction over 3 months in eGFR<60 mL/min/1.73 m2 defines CKD. Patients with eGFR values>=60 mL/min/1.73 m2 may also have CKD if evidence ofpersistent proteinuria. Additional information may be foundat www.kidney.org. SODIUM 140 mmol/L (136-145) POTASSIUM 3.9 mmol/L (3.5-5.1) CHLORIDE 102 mmol/L (98-107) CARBON DIOXIDE 28 mmol/L (21-32) CALCIUM 8.9 mg/dL (8.5-10.1) TOTAL PROTEIN 8.4 H g/dL (6.4-8.2) ALBUMIN 3.9 g/dL (3.3-5.0) BILIRUBIN, TOTAL 0.5 mg/dL (0.0-1.0) ALKALINE PHOSPHATASE 111 U/L (46-116) AST (SGOT) 23 U/L (15-37) ALT (SGPT) 54 U/L (12-78) LACTIC ACID SEPSIS PROTOCOL 0.9 mmol/L (0.4-2.0) . PROGRESS AND PROCEDURES Incision & Drainage of Abscess: Time-out completed immediately before the procedure. The abscess is located in the right axilla. The risks of the procedure, benefits and alternatives were explained. Consent was obtained. IV established. Placed on pulse oximeter and color television console monitor. Parenteral Dilaudid administered. Local anesthesia provided using 2% lidocaine no epi. Skin cleansed with Betadine. The abscess was incised with a #11 surgical blade. A large amount of pus was drained. Cavity was irrigated with saline and packed with gauze. Sample obtained for cultures and gram stain. A dressing was applied. Course of Care: Patient is stable. Discussed case with hospitalist, (Fritz). Reviewed test results and need for additional work-up. Agreed upon treatment plan, need for patient follow-up and decision to place in observation. Health care provider will see patient in hospital. Patient/family counseled. Old medical records ordered. [facility] Disposition: Admitted. Observation. CLINICAL IMPRESSION Fever. Cellulitis. Single deep abscess with incision and drainage. Leukocytosis. (Electronically signed by Rod Mcgrath MD 12/26/2016 3:11)
--- NOTE | 2016-12-25 04:05 | ED NURSING NOTES ---
Clinical Report - Nurses [facility] [address] [place] [address] 12/25/2016 2:24 Patient: INEZ UQISPE TRIAGE Triage time 02:36. Acuity: LEVEL 4. Chief Complaint: SKIN RASH. Alert. --02:42 Sarah Baumann R.N. 02:36 12/25/16. BP: 124/78. HR: 124. RR: 16. O2 saturation: 98%. Temp: 103 F (oral). Hawthorne-L[place] pain scale: 6/10. --02:42 Sarah Baumann R.N. Weight: 108.8 kg stated. Height/Length: 68 inches Per Patient. BMI: 36.5. Growth Chart Percentile: Weight: 98.6%. Height/Length: 28.1%. --02:39 Sarah Baumann R.N. Allergies No Known Drug Allergy. --04:55 Arik Colon R.N. History Arrived by private vehicle. Historian: patient. Primary physician ([facility]). Reported as located in the right axilla. Onset. (about 1 1/2 week ago (was seen here 2 days ago, started on Abx) not getting better.). Treatment INVESTMENT REPRESENTATIVE: Took ibuprofen. (last dose one hr INVESTMENT REPRESENTATIVE, Tylenol last dose 2hrs INVESTMENT REPRESENTATIVE). PAST MEDICAL HX: Immunizations: up-to-date. SOCIAL HX: Light tobacco smoker. No alcohol use or drug use. NUTRITIONAL RISK ASSESSMENT: The nutritional risk assessment revealed no deficiencies. FUNCTIONAL ASSESSMENT: Functional assessment: no impairments noted. --02:42 Sarah Baumann R.N. Interventions ID band on patient. To treatment room. --02:42 Sarah Baumann R.N. PHYSICAL ASSESSMENT Ambulatory to room. Patient gowned. GENERAL / NEURO / PSYCH: Alert. The patient does not appear to be in acute distress. Oriented X 4. HEENT: Mucous membranes are pink. RESPIRATORY: Respirations not labored. CVS: Capillary refill less than 2 seconds. SKIN: Skin is warm and dry. Skin lesion present in the right axilla. --02:42 Sarah Baumann R.N. ( pt states being seen in this ER 3 days ago for same complaint. Patient has a large red swollen abscess under right arm in the axilla area. Patient complains of limited ROM due to pain.). --03:43 Arik Colon R.N. GENERAL / NEURO / PSYCH: Alert. Oriented X 4. HEENT: Mucous membranes are pink. RESPIRATORY: Respirations not labored. CVS: Cardiac rhythm: sinus tachycardia. Capillary refill less than 2 seconds. SKIN: Skin is warm and dry. Swelling present in the right axilla. --03:44 Arik oClon R.N. NURSING PROGRESS NOTES Head of bed elevated. Two patient identifiers checked. Call light placed in reach. Side rails up x 2. Bed placed in lowest position. Brakes of bed on. --02:42 Sarah Baumann R.N. 03:10 12/25/2016 Site #1 started via IV in the left antecubital space with an 20g angiocath; one attempt. Blood drawn: rainbow set and cultures x1. Labeled in the presence of the patient and sent to the lab. Saline lock flushed. --03:36 Arik Colon R.N. <<STRICKEN ENTRY-- 03:20 12/25/2016 Dilaudid (HYDROmorphone HCl PF) IVP 0.5 mg given over 2 minute(s) via site #1. --03:36 Arik Colon R.N. --END STRIKE>> Change to Details. --03:37 Arik Colon R.N. 03:20 12/25/2016 Dilaudid (HYDROmorphone HCl PF) IVP 0.5 mg given over 2 minute(s) via site #1. Allergies verified, confirmed 5 rights and sedative warning given to the patient and patient's family. IV patency established. IV site checked: no pain, redness, or swelling. IV flushed thoroughly pre- and post-medication administration. IVP given by RN. --03:37 Arik Colon R.N. 03:22 12/25/2016 Zofran (Ondansetron HCl) IVP 4 mg given over 1 minute(s) via site #1. Allergies verified and confirmed 5 rights. IV patency established. IV site checked: no pain, redness, or swelling. IV flushed thoroughly pre- and post-medication administration. IVP given by RN. --03:37 Arik Colon R.N. 03:25 12/25/2016 Started bag #1 500 mL IV Fluids IV NS (Saline); at 999 mL/hr over 30 minute(s) via site #1 --03:38 Arik Colon R.N. 03:28 12/25/2016 Dilaudid (HYDROmorphone HCl PF) IVP 0.5 mg given over 2 minute(s) via site #1. Allergies verified, confirmed 5 rights and sedative warning given to the patient and patient's family. IV patency established. IV site checked: no pain, redness, or swelling. IV flushed thoroughly pre- and post-medication administration. IVP given by RN. --03:38 Arik Colon R.N. I & D: Incision and Drainage of abscess performed by ED physician. Assisted by one tech. Preparation: Incision and Drainage tray set up with lidocaine. Procedure: skin cleansed with Betadine; a large amount of pus was drained. Sample obtained for cultures. A dressing was applied. Post-procedure: he was stable, no complications and bleeding controlled. Total time of assist / procedure: 15 minutes. ( Dr. Mcgrath at bedside performing I&D.). --03:42 Arik Colon R.N. 04:15 12/25/2016 Started 2 gm of Vancomycin IVPB in bag #1 500 mL; at 150 mL/hr via site #1 via IV pump. Allergies verified and confirmed 5 rights. IV patency established. IV site checked: no pain, redness, or swelling. IV flushed thoroughly pre- and post-medication administration. --04:15 Arik Colon R.N. Patient gowned. The patient is calm and resting quietly. Overall patient status is improved- he states feels better. Two patient identifiers checked. Call light placed in reach. Side rails up x 1. Bed placed in lowest position. Brakes of bed on. ( materials supervisor with patient, performing hospital admission procedures.). --04:26 Arik Colon R.N. 04:24 12/25/16. BP: 124/67. HR: 130 (regular). RR: 22 (regular). O2 saturation: 95% on room air. Pain level now: 0/10. --04:26 Arik Colon R.N. Care transferred and report given (to Niels Lemus RN). --04:37 Arik Colon R.N. DISPOSITION / DISCHARGE Report was given to a nurse via a phone call. Report included patient's care, treatment, medications, reviewed medication reconcilliation, and condition (including any recent changes or anticipated changes). All questions were answered. Report was acknowledged. --04:38 Arik Colon R.N. 04:39 12/25/16. BP: 141/72. HR: 129. RR: 18. O2 saturation: 94%. Pain level now: 0/10. --04:40 Arik Colon R.N. 04:42 12/25/2016 IV Fluids IV NS Discontinued: bag #1 completed. Total amount infused: 1000 mL. IV patency established. IV site checked: no pain, redness, or swelling. IV flushed thoroughly. --04:42 Arik Colon R.N. 04:43 12/25/2016 Vancomycin IVPB Continued: at the rate of 150 mL/hr. 470 mL remaining bag #1. IV patency established. IV site checked: no pain, redness, or swelling. IV flushed thoroughly. --04:43 Arik Colon R.N. 04:44 12/25/2016 Site #[address] upon admission; patent, no pain and no signs of infection or infiltration. Good blood return present. Flushed; flushes easily. --04:44 Arik Colon R.N. Transported via stretcher by transport team with IV. Patient's personal items include: shirt, pants, socks and shoes, clothing and ipad (without electro mechanical assembler.); items were transported with the patient. --04:47 Arik Colon R.N. Departure time: 0453. --04:54 Arik Colon R.N. Locked/Released at 12/25/2016 4:56 by Arik Colon R.N.
[2016-12-25] MEDS ORDERED: BACTRIM DS1 TAB PO (04:44)
[2016-12-25 05:18] VITALS: BP 125/70
--- NOTE | 2016-12-25 06:00 | Progress Note ---
Subjective General Admission History and Physical Examination Patient Name: Rudolph Yanez Admission Date: December 25, 2016 Primary Care Provider: Dr. Morejon ([facility]) Attending Physician: Adriano Hu M.D. Admitting Physician: Adriano Hu M.D. CODE STATUS: FULL CODE Room: 207 SUBJECTIVE Historian: Patient Reliability: Good Chief Complaint: Abscess/cellulitis (R) arm History of Present Illness: The patient is a 21-year-old male with a significant past medical history of asthma, tobacco abuse-smoking but no other significant medical problems who presented to [facility] emergency room on the day of admission secondary to complaints of cellulitis right axillary region. [facility] ER evaluation was consistent with cellulitis/abscess right axillary region. The patient underwent I&D in the emergency department. Secondary to the above, the patient was admitted by Adriano Hu M.D. for further evaluation and treatment. The history of present was began approximately one week prior to admission when the patient developed a red swollen area in the right axillary region. This became worse with increasing pain prompting ER evaluation. The patient was seen at [facility] ER 4 days prior to admission and diagnosed with cellulitis right axillary region. He was treated with Bactrim DS one by mouth twice a day only to have symptoms worsen with increasing pain and swelling. Secondary to the above symptoms the patient presented again to [facility] emergency room on the day of admission. [facility] ER evaluation showed vital signs of blood pressure 124/78 mmHg, pulse 124, respirations 16, temperature 100.3 degrees O2 sat room air 98%. Physical exam was unremarkable other than abscess present right axillary region. The patient underwent I&D of this area with production of 30 cc of purulent material. Laboratory evaluation included CBC with differential with an H&H of 14.3/42.9, WBC 17.0. Chemistry profile was noncontributory. Secondary to the above, the patient was admitted with diagnosis of cellulitis/abscess right axillary region, positive SIRS criteria. PAST MEDICAL HISTORY Illnesses: 1. Tobacco abuse 2. Obesity 3. Asthma Allergies: 1. No Known Drug Allergies Medications: 1. Bactrim DS one by mouth twice a day 2. Vicodin 5/325 mg 1-2 by mouth every 6 hours when necessary pain Surgery: 1. None Injuries: 1. No significant Hospitalizations: 1. None FAMILY HISTORY Parents: 1. Father, Kj, living, 50, healthy, 2. Mother, Arcelia, living, 40, healthy Siblings: 1. Female, Panfilo, living, 11, healthy Children: 1. Female, Lucy, living, 5, healthy 2. Male, Cayetano, living, 6 months, healthy Other significant family history: None SOCIAL HISTORY 1. Marital Status: 2. Tenriism: None 3. Education: 12th grade 4. 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 Occupational health exposures: Loud noises, heavy lifting HABITS 1. Tobacco: 0.2 pack years, one pack per week 2. Drugs: None 3. Alcohol: None 4. Caffeine: None HEALTH SUPERVISION Item/Test 1. Vision screen: No recent 2. Cholesterol Profile: Unknown 3. PSA: NA 4. OLGA LIDIA: NA 5. FOBT: NA 6. Blood Glucose: 2017 7. Colonoscopy: NA 8. History and physical exam: 2017 9. Audiogram: NA 10. Mammogram: N/A 11. Pap/pelvic exam: NA IMMUNIZATIONS: 1. Pneumococcal: No previous 2. Influenza: 2015 3. Tetanus: Unknown ADVANCED DIRECTIVES: 1. Living well: No 2. POLST: No 3. CODE STATUS: FULL CODE 4. Durable Power Key Punch Teacher Health care: No 5. Donor card: No REVIEW OF SYSTEMS Remarkable for those things stated in the history of present illness and past medical history. Seventeen point review of system completed with the following notable findings: General: Fever, weakness Respiratory: Asthma Cardiovascular: Rapid heart rate Neurological: Headaches Endocrine: Excessive thirst Physical Exam Vital Signs / I&Os Vital Signs Date Time Temp Pulse Resp B/P Pulse O2 O2 Flow FiO2 Ox Delivery Rate 12/26 523 Room Air 12/25 517 99.5 117 14 125/70 96 Room Air General Appearance Alert, Oriented X3, Cooperative, No acute distress HEENT Normal exam, Atraumatic, PERRLA, EOMI, Moist mucous membranes Lungs Clear to auscultation, Normal air movement Neck Supple, No JVD Cardiovascular Regular rate and rhythm, Normal S1 and S2, No murmurs, gallops, rubs Abdomen Normal bowel sounds, Soft, No tenderness, No guarding Extremities No cyanosis, No clubbing, No edema Skin Right arm shows I&D with packing of abscess site medial aspect of upper arm /axilla with mild surrounding erythema. Neurological Cranial nerves intact, Strength 5/5 x4 ext's, No lateralizing signs Psych/Mental Status Mental status normal, Mood normal LAB Results Laboratory Tests 12/25 304 Chemistry Plasma Sodium (136 - 145 mmol/L) 140 Plasma Potassium (3.5 - 5.1 mmol/L) 3.9 Plasma Chloride (98 - 107 mmol/L) 102 CO2 (Enzymatic) (21 - 32 mmol/L) 28 BUN (7 - 18 mg/dL) 13 Creatinine (0.6 - 1.3 mg/dL) 1.2 Est GFR ( Amer) (mL/min) >60 Est GFR (Non-Af Amer) (mL/min) >60 Glucose (70 - 110 mg/dL) 105 Lactic Acid (0.4 - 2.0 mmol/L) 0.9 Plasma Calcium (8.5 - 10.1 mg/dL) 8.9 Total Bilirubin (0.0 - 1.0 mg/dL) 0.5 AST (15 - 37 U/L) 23 ALT (12 - 78 U/L) 54 Alkaline Phosphatase (46 - 116 U/L) 111 Total Protein (6.4 - 8.2 g/dL) 8.4 Albumin (3.3 - 5.0 g/dL) 3.9 Hematology WBC (4.5 - 11.5 K/uL) 17.0 RBC (4.50 - 5.90 M/uL) 5.02 Hgb (13.5 - 17.5 gm/dL) 14.3 Hct (41.0 - 53.0 %) 42.9 MCV (80 - 100 fL) 86 MCH (26 - 34 pg) 29 RDW (11.6 - 14.8 %) 12.8 Neut % (Auto) (50 - 75 %) 69.0 Lymph % (Auto) (25 - 40 %) 21.3 [place] % (Auto) (3 - 14 %) 7.5 Eos % (Auto) (0 - 4 %) 1.9 Baso % (Auto) (0 - 2 %) 0.3 Plt Count, EDTA (150 - 400 K/uL) 283 PUBS MCHC (31 - 37 g/dL) 33 Microbiology Date/Time Procedure - Status Source Growth 12/25 344 Blood Culture - RECD BLOOD 12/26 339 Deep Wound Culture - RES ARM 03/09 0340 Deep Wound Culture - RES ARM 12/25 0340 Gram Stain - RES ARM 12/25 0305 Blood Culture - RECD BLOOD Imaging None Assessment and Plan Problem List 1. Abscess Plan -Patient presents with findings of abscess right axillary region -Status post I&D -Gram stain, culture and sensitivity from the wound pending -Vancomycin per pharmacy protocol -Patient febrile with leukocytosis -Monitor 2. Cellulitis Plan -Patient with findings of cellulitis associated with abscess -See above 3. Tobacco abuse Status Chronic Onset Date Unknown Plan -Patient with history of nicotine dependence Smoking/tobacco abuse -Smoking cessation education -Encourage smoking abstinence post discharge -NicoDerm patch when necessary 4. Asthma Status Chronic Onset Date Unknown Plan -Patient with history of asthma -No symptoms at this time -Albuterol 2.5 mg via nebulizer every 6 hours when necessary shortness of breath /wheezing -Encourage smoking cessation 5. SIRS (systemic inflammatory response syndrome) Plan -Patient with positive SIRS screen -Findings of infection with right arm cellulitis/abscess -qSOFA is 0, low risk for sepsis -Monitor -closely -Lactic acid within normal limits -Antimicrobials as noted above 6. Obesity Status Chronic Onset Date Unknown Plan -Patient with BMI of 36.3 -Nutritional consultation -Encourage weight reduction program. The patient's hospitalization Current status: Fair, unstable Anticipated discharge date: Anticipated discharge in 2-3 days Anticipated discharge placement: Home Patient care time: Time spent in chart review, patient interview, physical exam, CPOE, and care documentation: 70 minutes Visit to patient today: 1 Complexity of care: High E&M Codes Admission: Inpt-High/08027
--- NOTE | 2016-12-25 06:00 | Progress Note ---
Subjective General Admission History and Physical Examination Patient Name: Rudolph Yanez Admission Date: December 25, 2016 Primary Care Provider: Dr. Morejon ([facility]) Attending Physician: Adriano Hu M.D. Admitting Physician: Adriano Hu M.D. CODE STATUS: FULL CODE Room: 207 SUBJECTIVE Historian: Patient Reliability: Good Chief Complaint: Abscess/cellulitis (R) arm History of Present Illness: The patient is a 21-year-old male with a significant past medical history of asthma, tobacco abuse-smoking but no other significant medical problems who presented to [facility] emergency room on the day of admission secondary to complaints of cellulitis right axillary region. [facility] ER evaluation was consistent with cellulitis/abscess right axillary region. The patient underwent I&D in the emergency department. Secondary to the above, the patient was admitted by Adriano Hu M.D. for further evaluation and treatment. The history of present was began approximately one week prior to admission when the patient developed a red swollen area in the right axillary region. This became worse with increasing pain prompting ER evaluation. The patient was seen at [facility] ER 4 days prior to admission and diagnosed with cellulitis right axillary region. He was treated with Bactrim DS one by mouth twice a day only to have symptoms worsen with increasing pain and swelling. Secondary to the above symptoms the patient presented again to [facility] emergency room on the day of admission. [facility] ER evaluation showed vital signs of blood pressure 124/78 mmHg, pulse 124, respirations 16, temperature 100.3 degrees O2 sat room air 98%. Physical exam was unremarkable other than abscess present right axillary region. The patient underwent I&D of this area with production of 30 cc of purulent material. Laboratory evaluation included CBC with differential with an H&H of 14.3/42.9, WBC 17.0. Chemistry profile was noncontributory. Secondary to the above, the patient was admitted with diagnosis of cellulitis/abscess right axillary region, positive SIRS criteria. PAST MEDICAL HISTORY Illnesses: 1. Tobacco abuse 2. Obesity 3. Asthma Allergies: 1. No Known Drug Allergies Medications: 1. Bactrim DS one by mouth twice a day 2. Vicodin 5/325 mg 1-2 by mouth every 6 hours when necessary pain Surgery: 1. None Injuries: 1. No significant Hospitalizations: 1. None FAMILY HISTORY Parents: 1. Father, Kj, living, 50, healthy, 2. Mother, Arcelia, living, 40, healthy Siblings: 1. Female, Panfilo, living, 11, healthy Children: 1. Female, Lucy, living, 5, healthy 2. Male, Cayetano, living, 6 months, healthy Other significant family history: None SOCIAL HISTORY 1. Marital Status: 2. Confucianist: None 3. Education: 12th grade 4. 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 Occupational health exposures: Loud noises, heavy lifting HABITS 1. Tobacco: 0.2 pack years, one pack per week 2. Drugs: None 3. Alcohol: None 4. Caffeine: None HEALTH SUPERVISION Item/Test 1. Vision screen: No recent 2. Cholesterol Profile: Unknown 3. PSA: NA 4. OLGA LIDIA: NA 5. FOBT: NA 6. Blood Glucose: 2017 7. Colonoscopy: NA 8. History and physical exam: 2017 9. Audiogram: NA 10. Mammogram: N/A 11. Pap/pelvic exam: NA IMMUNIZATIONS: 1. Pneumococcal: No previous 2. Influenza: 2015 3. Tetanus: Unknown ADVANCED DIRECTIVES: 1. Living well: No 2. POLST: No 3. CODE STATUS: FULL CODE 4. 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 Donor card: No REVIEW OF SYSTEMS Remarkable for those things stated in the history of present illness and past medical history. Seventeen point review of system completed with the following notable findings: General: Fever, weakness Respiratory: Asthma Cardiovascular: Rapid heart rate Neurological: Headaches Endocrine: Excessive thirst Physical Exam Vital Signs / I&Os Vital Signs Date Time Temp Pulse Resp B/P Pulse O2 O2 Flow FiO2 Ox Delivery Rate 12/26 523 Room Air 12/25 517 99.5 117 14 125/70 96 Room Air General Appearance Alert, Oriented X3, Cooperative, No acute distress HEENT Normal exam, Atraumatic, PERRLA, EOMI, Moist mucous membranes Lungs Clear to auscultation, Normal air movement Neck Supple, No JVD Cardiovascular Regular rate and rhythm, Normal S1 and S2, No murmurs, gallops, rubs Abdomen Normal bowel sounds, Soft, No tenderness, No guarding Extremities No cyanosis, No clubbing, No edema Skin Right arm shows I&D with packing of abscess site medial aspect of upper arm /axilla with mild surrounding erythema. Neurological Cranial nerves intact, Strength 5/5 x4 ext's, No lateralizing signs Psych/Mental Status Mental status normal, Mood normal LAB Results Laboratory Tests 12/25 304 Chemistry Plasma Sodium (136 - 145 mmol/L) 140 Plasma Potassium (3.5 - 5.1 mmol/L) 3.9 Plasma Chloride (98 - 107 mmol/L) 102 CO2 (Enzymatic) (21 - 32 mmol/L) 28 BUN (7 - 18 mg/dL) 13 Creatinine (0.6 - 1.3 mg/dL) 1.2 Est GFR ( Amer) (mL/min) >60 Est GFR (Non-Af Amer) (mL/min) >60 Glucose (70 - 110 mg/dL) 105 Lactic Acid (0.4 - 2.0 mmol/L) 0.9 Plasma Calcium (8.5 - 10.1 mg/dL) 8.9 Total Bilirubin (0.0 - 1.0 mg/dL) 0.5 AST (15 - 37 U/L) 23 ALT (12 - 78 U/L) 54 Alkaline Phosphatase (46 - 116 U/L) 111 Total Protein (6.4 - 8.2 g/dL) 8.4 Albumin (3.3 - 5.0 g/dL) 3.9 Hematology WBC (4.5 - 11.5 K/uL) 17.0 RBC (4.50 - 5.90 M/uL) 5.02 Hgb (13.5 - 17.5 gm/dL) 14.3 Hct (41.0 - 53.0 %) 42.9 MCV (80 - 100 fL) 86 MCH (26 - 34 pg) 29 RDW (11.6 - 14.8 %) 12.8 Neut % (Auto) (50 - 75 %) 69.0 Lymph % (Auto) (25 - 40 %) 21.3 Mccone % (Auto) (3 - 14 %) 7.5 Eos % (Auto) (0 - 4 %) 1.9 Baso % (Auto) (0 - 2 %) 0.3 Plt Count, EDTA (150 - 400 K/uL) 283 PUBS MCHC (31 - 37 g/dL) 33 Microbiology Date/Time Procedure - Status Source Growth 12/25 344 Blood Culture - RECD BLOOD 12/26 339 Deep Wound Culture - RES ARM 03/09 0340 Deep Wound Culture - RES ARM 12/25 0340 Gram Stain - RES ARM 12/25 0305 Blood Culture - RECD BLOOD Imaging None Assessment and Plan Problem List 1. Abscess Plan -Patient presents with findings of abscess right axillary region -Status post I&D -Gram stain, culture and sensitivity from the wound pending -Vancomycin per pharmacy protocol -Patient febrile with leukocytosis -Monitor 2. Cellulitis Plan -Patient with findings of cellulitis associated with abscess -See above 3. Tobacco abuse Status Chronic Onset Date Unknown Plan -Patient with history of nicotine dependence Smoking/tobacco abuse -Smoking cessation education -Encourage smoking abstinence post discharge -NicoDerm patch when necessary 4. Asthma Status Chronic Onset Date Unknown Plan -Patient with history of asthma -No symptoms at this time -Albuterol 2.5 mg via nebulizer every 6 hours when necessary shortness of breath /wheezing -Encourage smoking cessation 5. SIRS (systemic inflammatory response syndrome) Plan -Patient with positive SIRS screen -Findings of infection with right arm cellulitis/abscess -qSOFA is 0, low risk for sepsis -Monitor -closely -Lactic acid within normal limits -Antimicrobials as noted above 6. Obesity Status Chronic Onset Date Unknown Plan -Patient with BMI of 36.3 -Nutritional consultation -Encourage weight reduction program. The patient's hospitalization Current status: Fair, unstable Anticipated discharge date: Anticipated discharge in 2-3 days Anticipated discharge placement: Home Patient care time: Time spent in chart review, patient interview, physical exam, CPOE, and care documentation: 70 minutes Visit to patient today: 1 Complexity of care: High E&M Codes Admission: Inpt-High/07561
[2016-12-25 11:29] VITALS: BP 136/72
[2016-12-25 14:49] VITALS: BP 134/72
[2016-12-25 19:32] VITALS: BP 128/75
[2016-12-25 22:45] VITALS: BP 122/53
--- NOTE | 2016-12-26 03:11 | ED MED RECONCILIATION SUMMARY ---
Patient: INEZ QUISPE Medication Reconciliation Report [facility] VisitID: [id number] [address] [place] [address] 21y, M Registration Date/Time: 12/25/2016 Weight: 108.8 kg Height/Length: 68 in. BMI: 36.5 ALLERGIES: No Known Drug Allergy The patient's Home Medications are listed below: Not obtained. The source(s) of the original Home Medication information: Not obtained. The following Medications were given to the patient in the Emergency Department: Dilaudid [IVP] IVP 0.5 mg, administered: 12/25/2016 3:20:00 AM Zofran [IVP] IVP 4 mg, administered: 12/25/2016 3:22:00 AM Dilaudid [IVP] IVP 0.5 mg, administered: 12/25/2016 3:28:00 AM IV NS IV Fluids bolus 0, then 999 mL/hr, administered: 12/25/2016 3:25:00 AM Vancomycin [IVPB] IVPB bolus 0, then 2 gm 150 mL/hr, administered: 12/25/2016 4:15:00 AM The following Medications were prescribed to the patient: None.
--- NOTE | 2016-12-26 03:11 | ED MED RECONCILIATION SUMMARY ---
Patient: INEZ QUISPE Medication Reconciliation Report [facility] VisitID: [id number] [address] [place] [address] 21y, M Registration Date/Time: 12/25/2016 Weight: 108.8 kg Height/Length: 68 in. BMI: 36.5 ALLERGIES: No Known Drug Allergy The patient's Home Medications are listed below: Not obtained. The source(s) of the original Home Medication information: Not obtained. The following Medications were given to the patient in the Emergency Department: Dilaudid [IVP] IVP 0.5 mg, administered: 12/25/2016 3:20:00 AM Zofran [IVP] IVP 4 mg, administered: 12/25/2016 3:22:00 AM Dilaudid [IVP] IVP 0.5 mg, administered: 12/25/2016 3:28:00 AM IV NS IV Fluids bolus 0, then 999 mL/hr, administered: 12/25/2016 3:25:00 AM Vancomycin [IVPB] IVPB bolus 0, then 2 gm 150 mL/hr, administered: 12/25/2016 4:15:00 AM The following Medications were prescribed to the patient: None.
--- NOTE | 2016-12-26 03:11 | ED DISCHARGE INSTRUCTIONS ---
Patient: INEZ QUISPE General Instructions [facility] VisitID: [id number] [address] [place] [address] 21y, M Registration Date/Time: 12/25/2016 Fever. Cellulitis. Single deep abscess with incision and drainage. Leukocytosis. (Electronically signed by Rod Mcgrath MD 12/26/2016 3:11)
--- NOTE | 2016-12-26 03:11 | ED MAR SUMMARY ---
..... Medication Administration Record [facility] [address] [place] [address] Patient: INEZ QUISPE Visit ID: [id number] 21y, M Weight: 108.8 kg Height/Length: 68 in BMI: 36.5 ALLERGIES: No Known Drug Allergy Given 03:20 12/25/2016 Arik Colon R.N. Medication Administered: DILAUDID [IVP] (HYDROMORPHONE HCL PF), Dose: 0.5 mg IVP over 2 minute(s), Site: #1 left AC. Medication Ordered: Dilaudid IV 0.5 mg (HIGH ALERT MEDICATION, NOW). Given 03:22 12/25/2016 Arik Colon R.N. Medication Administered: ZOFRAN [IVP] (ONDANSETRON HCL), Dose: 4 mg IVP over 1 minute(s), Site: #1 left AC. Medication Ordered: Zofran IV 4 mg (NOW). Start 03:25 12/25/2016 Arik Colon R.N., Stop 04:42 12/25/2016 Arik Colon R.N. Medication Administered: IV NS (SALINE), Dose: IV Fluids over 30 minute(s), Rate: 999 mL/hr, Dispensed: 500 mL bag, Site: #1 left AC. Medication Ordered: IV NS : initial bolus 500 mL (1000 mL/hr), then 125 mL/hr for 4h (NOW); Urgent. Given 03:28 12/25/2016 Arik Colon R.N. Medication Administered: DILAUDID [IVP] (HYDROMORPHONE HCL PF), Dose: 0.5 mg IVP over 2 minute(s), Site: #1 left AC. Medication Ordered: Dilaudid IV 0.5 mg (NOW). Start 04:15 12/25/2016 Arik Colon R.N., Continued Upon Disposition 04:43 12/25/2016 Arik Colon R.N. Medication Administered: VANCOMYCIN [IVPB], Dose: 2 gm IVPB, Rate: 150 mL/hr, Dispensed: 500 mL bag, Site: #1 left AC. Medication Ordered: Vancomycin IV 2 gm/500 mL (NOW).
--- NOTE | 2016-12-26 03:11 | ED DISCHARGE INSTRUCTIONS ---
Patient: INEZ QUISPE General Instructions [facility] VisitID: [id number] [address] [place] [address] 21y, M Registration Date/Time: 12/25/2016 Fever. Cellulitis. Single deep abscess with incision and drainage. Leukocytosis. (Electronically signed by Rod Mcgrath MD 12/26/2016 3:11)
--- NOTE | 2016-12-26 03:11 | ED MAR SUMMARY ---
..... Medication Administration Record [facility] [address] [place] [address] Patient: INEZ QUISPE Visit ID: [id number] 21y, M Weight: 108.8 kg Height/Length: 68 in BMI: 36.5 ALLERGIES: No Known Drug Allergy Given 03:20 12/25/2016 Arik Colon R.N. Medication Administered: DILAUDID [IVP] (HYDROMORPHONE HCL PF), Dose: 0.5 mg IVP over 2 minute(s), Site: #1 left AC. Medication Ordered: Dilaudid IV 0.5 mg (HIGH ALERT MEDICATION, NOW). Given 03:22 12/25/2016 Arik Colon R.N. Medication Administered: ZOFRAN [IVP] (ONDANSETRON HCL), Dose: 4 mg IVP over 1 minute(s), Site: #1 left AC. Medication Ordered: Zofran IV 4 mg (NOW). Start 03:25 12/25/2016 Arik Colon R.N., Stop 04:42 12/25/2016 Arik Colon R.N. Medication Administered: IV NS (SALINE), Dose: IV Fluids over 30 minute(s), Rate: 999 mL/hr, Dispensed: 500 mL bag, Site: #1 left AC. Medication Ordered: IV NS : initial bolus 500 mL (1000 mL/hr), then 125 mL/hr for 4h (NOW); Urgent. Given 03:28 12/25/2016 Arik Colon R.N. Medication Administered: DILAUDID [IVP] (HYDROMORPHONE HCL PF), Dose: 0.5 mg IVP over 2 minute(s), Site: #1 left AC. Medication Ordered: Dilaudid IV 0.5 mg (NOW). Start 04:15 12/25/2016 Arik Colon R.N., Continued Upon Disposition 04:43 12/25/2016 Arik Colon R.N. Medication Administered: VANCOMYCIN [IVPB], Dose: 2 gm IVPB, Rate: 150 mL/hr, Dispensed: 500 mL bag, Site: #1 left AC. Medication Ordered: Vancomycin IV 2 gm/500 mL (NOW).
[2016-12-26 03:15] VITALS: BP 136/73
[2016-12-26 07:18] VITALS: BP 122/83
[2016-12-26 12:06] VITALS: BP 134/89
[2016-12-26 14:59] VITALS: BP 130/72
[2016-12-26 18:11] VITALS: BP 130/57
[2016-12-27 00:18] VITALS: BP 134/74
[2016-12-27 02:26] VITALS: BP 111/57
[2016-12-27 06:54] VITALS: BP 108/57
[2016-12-27 11:14] VITALS: BP 129/70
[2016-12-27 14:33] VITALS: BP 126/74
[2016-12-27] MEDS ORDERED: BACTRIM DS1 TAB PO (15:46)
--- NOTE | 2016-12-27 15:48 | Provider's Discharge Care Plan ---
Problem, Goal, Plan Problem List 1. Abscess Goals: Improved health/wellness, Therapeutic intervention Instructions: Follow up as directed, Take meds as directed 2. Tobacco abuse Goals: Improved health/wellness Instructions: Stop smoking
[2016-12-27] MEDS ORDERED: PERCOCET1 TA1 PO (16:33)
--- NOTE | 2016-12-28 00:51 | DISCHARGE SUMMARY ---
ADMIT DATE: 12/25/2016 DISCHARGE DATE: 12/27/2016 ADMITTING DIAGNOSES: 1. Abscess 2. Cellulitis 3. Tobacco abuse 4. Asthma 5. Systemic inflammatory response syndrome 6. Obesity DISCHARGE DIAGNOSES: 1. Abscess, improving 2. Cellulitis, improving 3. Tobacco use. Advised to quit. 4. Asthma, stable 5. Systemic inflammatory response syndrome, resolved 6. Obesity. Advised to lose weight. BRIEF HISTORY: This is a 21-year-old male who presents with approximately 1 week , of progressively increasing erythema in his right upper arm. As this worsened, he presented to the emergency department for further evaluation and treatment. The patient was initially seen in the emergency department 4 days prior to admission, diagnosed with right arm cellulitis. He was treated with Bactrim-DS 1 tablet p.o. b.i.d., but had increasing pain and swelling and therefore presented to the emergency department. An I and D was performed. HOSPITAL COURSE: The patient was monitored in the hospital until cultures came back showing MRSA that is sensitive to Bactrim. The patient did continue to have serosanguineous discharge from his wound that has been decreasing for the past several days. PHYSICAL EXAMINATION: VITAL SIGNS: At the time of discharge, vital signs stable. GENERAL: The patient is a well-appearing male, sitting in a chair, in no apparent distress. HEENT: Head is atraumatic, normocephalic. LUNGS: Clear to auscultation bilaterally. HEART: S1, S2, regular rate and rhythm. No S3, S4, murmurs, gallops, or rubs. ABDOMEN: Soft, nontender, nondistended without hepatosplenomegaly or masses. Bowel sounds are active. There is no peripheral edema. EXTREMITIES: The patient does have a 1.5 cm laceration in his right upper arm with serosanguineous discharge and minimal erythema around the wound that is less than 1 cm. DISCHARGE INSTRUCTIONS/MEDICATIONS: The patient was discharged home with instructions to follow up in his clinic on Thursday. If he has problems making this appointment, he was instructed to call the hospital for assistance. I would consider consulting wound care at that time. Activity: ad betina. Diet: General. Medications: Bactrim-DS 1 tablet p.o. b.i.d. x10 days. Percocet 5/325 mg 1 tablet p.o. q.6 hours p.r.n. severe pain.
== END 2016-12-27 16:45 | disposition home or self-care (01) | DRG 383 ==
LOC: ED SRH 02:23 → TRANS SRH 04:14 → ACUTE2 SRH 05:10
PROVIDERS: ADMIT Internal Medicine
PROC: 0H9BXZX Drainage of Right Upper Arm Skin, External Approach, Diagnostic (ICD-10-PCS; principal; 2016-12-25)
DX: L02.411 Cutaneous abscess of right axilla (principal); L03.111 Cellulitis of right axilla; B95.62 Methicillin resistant Staphylococcus aureus infection as the cause of diseases classified elsewhere; E66.9 Obesity, unspecified; Z68.36 Body mass index [BMI] 36.0-36.9, adult; J45.909 Unspecified asthma, uncomplicated; F17.210 Nicotine dependence, cigarettes, uncomplicated; Z71.6 Tobacco abuse counseling
CPT/HCPCS: 83766; 90065; 90070; 90074; 90100; 90131; 90309; 90470; 91583; 91672; 92031; 92630; 95059